=== PATIENT | female | born 1935 | race Two or more races ===

== ENCOUNTER 2024-07-16 13:33 | Emergency (ER) | payer OTHER ==
[~2024-07-16] VITALS: Ht 157.5 cm; Wt 63.0 kg
[2024-07-16] MEDS ORDERED: SYNTHROID88 MCG PO (16:32)
[2024-07-16] MEDS ORDERED: MORPHINE SULFATE 4 MG/ML VIAL IV ONE (19:15)
[2024-07-17] MEDS ORDERED: KETOROLAC TROMETHAMINE 60 MG VIAL IM STA (02:30)
[2024-07-17] MEDS ORDERED: KETOROLAC TROMETHAMINE 60 MG VIAL IM ONE (02:39)
== END 2024-07-17 03:01 | disposition home or self-care (01) ==
LOC: ER 13:35
DX: M54.50 Low back pain, unspecified (principal)
CPT/HCPCS: 72131; 74176; 96365; 96372; 99284; J1885; J2270